=== PATIENT | female | born 1955 | race Caucasian/White ===

== ENCOUNTER 2017-03-11 08:52 | Emergency (ER) | payer OTHER ==
[2017-03-11 11:16] VITALS: BP 160/82
== END 2017-03-11 11:16 | disposition home or self-care (01) ==
LOC: ED 08:52
DX: M54.2 Cervicalgia (principal); I10 Essential (primary) hypertension; Z88.0 Allergy status to penicillin; Z88.8 Allergy status to other drugs, medicaments and biological substances; Z91.040 Latex allergy status
CPT/HCPCS: 82962